=== PATIENT | male | born 1960 | race Caucasian/White ===

== ENCOUNTER 2020-10-30 09:19 | Outpatient (CLI) | payer MEDICAID, SELFPAY ==
--- NOTE | 2020-10-30 09:32 | US_ITS ---
WS: [id number] SCROTAL ULTRASOUND EXAMINATION CLINICAL INFORMATION: URINARY HESITENCY COMPARISON: FINDINGS: TESTES Normal in size and echotexture. Hypoechoic well-circumscribed solid lesion superior pole left testicl e peripherally measuring 6 5.2 x 3.6 x 3.6 mm. This is nonspecific but differential considerations in clude granuloma, chronic focal infarct, or neoplasm. Recommend urology consultation. Right testes size: 4.5 cm x 3.2 cm x 2.8 cm. Left testes size: 4.3 cm x 3.0 cm x 2.7 cm. EPIDIDYMIDES Left epididymal cyst 3.4 x 3.0 x 3.9 mm Right epididymis size: 0.6 cm x 1.0 cm x 0.8 cm. Left epididymitis size: 0.5 cm x 0.8 cm x 0.7 cm. HYDROCELE Small bilateral VARICOCELE None. OTHER FINDINGS None. US/US scrotum [id number] IMPRESSION: 1. Hypoechoic solid appearing lesion upper pole left testicle measuring 5.2 x 3.6 x 3.6 mm. This is nonspecific but differential considerations include granu ari, chronic focal infarct, or neoplasm. Neoplasm needs to be excluded. Recomm end urology consultation. 2. Small bilateral hydroceles. 3. Left epididymal cyst measuring 3.4 x 3.0 x 3.9 mm
== END 2020-10-30 09:20 | disposition home or self-care (01) ==
LOC: US 09:24
PROVIDERS: PCP Family Medicine; Visit Provider Family Medicine
DX: N40.0 Benign prostatic hyperplasia without lower urinary tract symptoms (principal); R39.11 Hesitancy of micturition; N50.3 Cyst of epididymis; N43.3 Hydrocele, unspecified
CPT/HCPCS: 76870

== ENCOUNTER → 2020-11-22 11:45 | Outpatient (BNVA) | payer MEDICAID, SELFPAY | PROVIDERS: PCP Family Medicine; Referring Provider Family Medicine; Visit Provider Urology | DX: R39.11 Hesitancy of micturition (principal); R97.20 Elevated prostate specific antigen [PSA]; N40.1 Benign prostatic hyperplasia with lower urinary tract symptoms; Q55.22 Retractile testis | CPT/HCPCS: 81003; 84153 ==

== ENCOUNTER → 2021-01-16 13:12 | Outpatient (BNVA) | payer MEDICAID, SELFPAY | PROVIDERS: PCP Family Medicine; Visit Provider Nurse Practitioner Family | DX: R97.20 Elevated prostate specific antigen [PSA] (principal) | CPT/HCPCS: 84153 ==

== ENCOUNTER → 2021-01-21 08:40 | Outpatient (BNVA) | payer MEDICAID, SELFPAY | PROVIDERS: PCP Family Medicine; Visit Provider Urology | DX: N40.1 Benign prostatic hyperplasia with lower urinary tract symptoms (principal); N30.80 Other cystitis without hematuria; R97.20 Elevated prostate specific antigen [PSA]; N41.1 Chronic prostatitis; R39.89 Other symptoms and signs involving the genitourinary system | CPT/HCPCS: 81003 ==

== ENCOUNTER → 2021-02-19 16:33 | Outpatient (BNVA) | payer MEDICAID, SELFPAY | PROVIDERS: PCP Family Medicine; Visit Provider Urology | DX: R97.20 Elevated prostate specific antigen [PSA] (principal) | CPT/HCPCS: 88305 ==

== ENCOUNTER 2021-03-20 07:12 | Outpatient (CLI) | payer MEDICAID, SELFPAY ==
--- NOTE | 2021-03-20 07:23 | NM_ITS ---
WS: [id number] NUCLEAR MEDICINE BONE SCAN Radiopharmaceutical: 27.1 Tc-99m MDP mCi IV Injection site: Left antecubital Postinjection imaging delay: 1 hr CLINICAL INFORMATION: MALIGNANT NEOPOLASM OF BONE COMPARISON: None. FINDINGS: Bone lesions: Single punctate focus of uptake in the right femoral head/neck junction. No other suspi cious findings. Soft tissue contours: Normal. Kidneys: Normal. Other findings: None. NM/NM bone scan whole body* [id number] IMPRESSION: 1. Single punctate focus of uptake in the right femoral head neck junction rogelio ears to correspond to the benign herniation pit on the radiograph and concurren t CT abdomen pelvis from today. Otherwise no evidence of metastatic disease. Th is could be followed-up in 3 months with bone scan and radiograph to confirm st ability. Herniation pit is stable since the hip radiograph 2014.
== END 2021-03-20 07:13 | disposition home or self-care (01) ==
PROVIDERS: PCP Family Medicine; Visit Provider Urology
DX: C41.9 Malignant neoplasm of bone and articular cartilage, unspecified (principal)
CPT/HCPCS: 78306; A9561

== ENCOUNTER 2021-03-20 07:26 | Outpatient (CLI) | payer MEDICAID, SELFPAY ==
[2021-03-20] MEDS: iohexol 300 mg/mL 100 mL Btl IV (07:38)
--- NOTE | 2021-03-20 09:00 | CT_ITS ---
WS: [id number] CT ABDOMEN PELVIS TECHNIQUE: Noncontrast CT of the abdomen and contrast-enhanced CT of the abdomen and pelvis with melony nal and sagittal reformatted images. CLINICAL INFORMATION: PROSTATE CANCER COMPARISON: None. DLP: 4030.[address] scans at [facility] use at least one of these dose optimization techniques: automated e xposure control; mA and/or kV adjustment per patient size (includes targeted exams where dose is matc hed to clinical indication); or iterative reconstruction. FINDINGS: Diffuse fatty infiltration of the liver. Hepatomegaly. A few tiny low-attenuation lesions in the live r likely hepatic cysts. Normal portal vein and splenic vein. Lung bases are well aerated. Normal GE j unction. Normal gallbladder. Normal spleen. Mild fatty atrophy of the pancreas. Adrenal glands are no rmal. Exophytic fat attenuation lesion left kidney measuring 2.9 x 2.7 cm consistent with angiomyolipoma. N ormal renal parenchymal enhancement. No hydronephrosis. Normal excretion on the delayed imaging. No filling defects. Left eccentric bladder wall thickening s uspicious for TCC. Enlarged heterogeneous enhancing prostate measuring 4.4 x 4.8 cM. Recommend correl ation PSA. Enlarged right periprostatic lymph node measuring 10 mm. Normal sigmoid colon. Diverticulosis. No evidence of acute diverticulitis. No evidence of high-grade small or large bowel obstruction. Tiny fat-containing umbilical hernia. Disc space narrowing worse L5 -S1. Mild disc bulging L3-L4 and L4-L5. CT/CT abdomen pelvis wo/w [id number] IMPRESSION: 1. Heterogeneously enhancing nodular enlarged prostate with indentation on the bladder. 2. Enlarged right periprostatic lymph node measuring 10 mm. 3. Left eccentric enhancing bladder wall thickening suspicious for neoplasm/TC C. Recommend further evaluation with cystoscopy. 4. 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 5. Diffuse fatty infiltration of the liver. Mild hepatomegaly. 6. A few low-attenuation lesions in the liver nonspecific but likely hepatic c ysts. 7. No inguinal lymphadenopathy.
--- NOTE | 2021-03-20 10:18 | XR_ITS ---
WS: [id number] HIP WITH PELVIS RIGHT TECHNIQUE: 3 views of the right hip with pelvis CLINICAL INFORMATION: BONE SCAN COMPARISON COMPARISON: 2015 FINDINGS: Synovial herniation pit right femoral neck is unchanged since 2015 with a thin margin of sclerosis. N o other suspicious lesions. Moderate degenerative narrowing right hip with hypertrophic changes about the acetabulum. XR/XR hip RT 2-3V wo/w pel* [id number] IMPRESSION: 1. Well-circumscribed synovial herniation pit in the right femoral neck is unc hanged since 2015 2. Although synovial herniation pits typically not active on bone scan, the fo amandeep area of uptake appears to correspond to the benign herniation pit. 3. No other suspicious findings. [place] classification: grade 2: small cysts in femoral head/acetabulum or moder ate joint space narrowing or moderate loss of head sphericity
== END 2021-03-20 07:27 | disposition home or self-care (01) ==
LOC: RAD 07:27
PROVIDERS: PCP Family Medicine; Visit Provider Urology
DX: C61 Malignant neoplasm of prostate (principal); N40.0 Benign prostatic hyperplasia without lower urinary tract symptoms; D17.71 Benign lipomatous neoplasm of kidney; K76.9 Liver disease, unspecified; K76.0 Fatty (change of) liver, not elsewhere classified
CPT/HCPCS: 73502; 74178

== ENCOUNTER 2021-04-29 10:36 | Outpatient (CLI) | payer MEDICAID, SELFPAY | END 2021-04-29 10:37 | disposition home or self-care (01) | PROVIDERS: PCP Family Medicine; Visit Provider Urology | DX: R97.20 Elevated prostate specific antigen [PSA] (principal) | CPT/HCPCS: 84153 ==

== ENCOUNTER → 2021-05-06 13:51 | Outpatient (BNVA) | payer MEDICAID, SELFPAY | PROVIDERS: PCP Family Medicine; Visit Provider Urology | DX: N41.1 Chronic prostatitis (principal); C61 Malignant neoplasm of prostate | CPT/HCPCS: 81003 ==

== ENCOUNTER 2021-05-21 14:30 | Outpatient (CLI) | payer MEDICAID, SELFPAY ==
--- NOTE | 2021-05-21 16:45 | ONC CON_ITS ---
Dr. Cole New Patient Note Patient: Per Carnes Unit #: [id number]: 1960 Dicatated By: Carlos Cole M.D.Date of Visit: May 21, 2021 Onc MED New Patient/Consult Referring Physician: Dr. Delon Mcrae M.D. History of Present Illness: Mr. Per Carnes, is a 60-year-old gentleman with longstanding history of intermittent retractile testicle,, about a year ago started having recurrent right groin pain and progressive LUTS, patient underwent ultrasound on November 22, 2020 which showed lesion on the left testicle, patient was started on finasteride and tamsulosin with significant improvement in symptoms, as per urology note from January 21, 2021, his PSA was 25.62 and prostate was asymmetrical (L>R) with left-sided firmness, patient was treated with ciprofloxacin JESSIE showed very irregular with left-sided nodularity so TRUS P/biopsy was recommended which was done on February 19, 2021 which showed [place] score 3+3 and 2 of the 12 cores on the left side of his prostate bone scan and CT scan of abdomen pelvis done on March 20, 2021 showed no evidence of metastatic disease., His repeat PSA on April 29, 2021 was 40.1 which was significantly high with very short doubling time although his [place] score was low e.g. 3+3. Patient denies smoking but chew tobacco, has history of heavy alcohol use, now sober. Denies any hematuria or dysuria, denies any fever chills, patient on ciprofloxacin. As per patient he has already seen radiation oncology but considering second opinion from [facility] in [place]. Past Medical History: Mr. Carnes's medical history is unremarkable. Past Surgical History: Mr. Carnes's surgical/procedural history consists of TRUSP/bx. Medications: Ciprofloxacin HCl 1 Tablet (of 500 mg) Oral b.i.d., Finasteride 1 Tablet (of 5 mg) Oral daily, Ibuprofen 1 Tablet (of 800 mg) Oral b.i.d. PRN, Tamsulosin HCl 2 Tablet (of 0.4 mg) Capsule Oral daily Allergies: Sulfa Antibiotics Social History: Mr. Carnes is legally . Mr. Carnes has never smoked. He drinks occasionally. He has indicated exposure to the following products: chewing tobacco. chews 1 can of tobacco weekly. Family History: Mr. Carnes's mother at age 89: esophageal cancer. Mr. Carnes's father at age 89: hypertension, and myocardial infarction. Review Of Symptoms: Review of Systems is not available for this patient. Vital Signs: Performed on May 21, 2021 15:38: 5, 0, 30.10 (HIGH), 2.15 sq.m, 70.5 in, 98 %, 70 /min, 18 /min, 142/92 mm(hg) (HIGH), 98.3 F (LOW), and 212.8 lbs (HIGH). Performance Status: 0 - Fully active, able to carry on all predisease activities without restrictions. (ECOG) Physical Examination: ENMT - . No mouth sores, no thrush, no jaundice, Respiratory - Lungs are clear to auscultation, Cardiovascular - Regular rate and rhythm of heart, Abdomen - Soft, bowel sounds present, Extremities - No visible edema. Lab/Imaging: Most recent lab results are not available for this patient. Impression: Prostatic adenocarcinoma per TUR SP/biopsy done on February 19, 2021 showed 2 cores positive for 3+3 [place] score with a volume of 45 to 55% and PSA checked on January 21, 2021 was 25.62 and on April 29, [address] scan of abdomen pelvis done on March 20, 2021 shows a heterogeneously enhancing nodular enlarged prostate with indentation on the bladder. Enlarged right periprostatic lymph node measuring 10 mm. Left eccentric enhancing bladder wall thickening suspicious for neoplasm/TCC no inguinal lymphadenopathy. A very few low-attenuation lesions in the liver, nonspecific but likely hepatic cysts. Bone scan done on March 20, 2021 showed no evidence of bone mets. Prostatitis, on ciprofloxacin Plan: Discussed with patient regarding his disease status and treatment options, clinically, patient has high risk prostate cancer being PSA more than 20, on April 29, 2021 his PSA was 40.1 but somehow [place] score is low e.g. 3+3 and 2 core biopsies with a volume of 45 to 55%, that would not explain PSA being that high, there are 2 possibilities either his prostate gland is harboring high-grade prostate cancer other possibility could be due to prostatitis. Case was discussed with Dr. Mcrae, urology, to consider repeating prostate biopsy but under general anesthesia as patient could not tolerate prostate biopsies done earlier due to significant pain.Unless repeat PSA shows significant improvement after treatment for prostatitis Patient is also interested in second opinion from [facility] prior to starting treatment, in that case we will refer him to urology oncology clinic at [place] for evaluation for clinical trial and for second opinion. Patient will return to clinic after his visit to [facility] in [place]. Signed By: Carlos Cole M.D. <<Signature on File>>
== END 2021-05-21 14:31 | disposition home or self-care (01) ==
LOC: ONCMED 14:37
PROVIDERS: PCP Family Medicine; Visit Provider Internal Medicine Hematology & Oncology
DX: C61 Malignant neoplasm of prostate (principal); Z79.899 Other long term (current) drug therapy
CPT/HCPCS: 99205

== ENCOUNTER → 2021-05-22 10:28 | Outpatient (BNVA) | payer MEDICAID, SELFPAY | PROVIDERS: PCP Family Medicine; Visit Provider Urology | DX: R97.20 Elevated prostate specific antigen [PSA] (principal); C61 Malignant neoplasm of prostate | CPT/HCPCS: 84153 ==

== ENCOUNTER → 2021-05-26 08:06 | Outpatient (BNVA) | payer MEDICAID, SELFPAY | PROVIDERS: PCP Family Medicine; Visit Provider Urology | DX: C61 Malignant neoplasm of prostate (principal) | CPT/HCPCS: 87635 ==

== ENCOUNTER 2021-05-28 05:59 | Day surgery (SDC) | payer MEDICAID, SELFPAY ==
[2021-05-27 12:34] VITALS: BMI 30.1
[2021-05-28 06:14] VITALS: BP 142/92; PULSE 58; RESP 18; TEMP 36.6; O2SAT 98
[2021-05-28] MEDS: sodium chloride 0.9% 1,000 ML 30 ML IV (06:41)
--- NOTE | 2021-05-28 06:49 | ANES.PREANE2 ---
Pre-Anesthetic Assessment Height/Weight: Height 1.79 m Weight 96.615 kg Temp Pulse Resp BP Pulse Ox 97.9 F 58 L 18 142/92 98 05/28/21 06:14 05/28/21 06:14 05/28/21 06:14 05/28/21 06:14 05/28/21 06:14 Preop Diagnosis: Prostate cancer needs restaging biopsies Operation Date: 05/28/21 07:00 Proposed Procedures p Transrectal Ultrasound Prostate W/Biospy [id number](Not Applicable) - Delon Mcrae MD Was Beta Rajesh taken within 24 hours: N/A Was Clonidine taken within 24 hours: N/A Last intake: Intake Last Liquid Date 05/27/21 Last Liquid Time 23:00 Last Solid Date 05/27/21 Last Solid Time 18:00 Social No alcohol and No tobacco Airway Submandibular: within normal limits Cervical ROM: within normal limits Mallampati: Class II Dentition: chipped Prostate CA Metabolic Morbid Obesity Anesthetic Plan ASA status: 2 Anesthesia: Choice Risk of > 500 ml blood loss (7ml/kg in children): No Medications/Allergies Home Medications Medication Instructions Recorded Confirmed Last Taken Type finasteride 5 mg tablet 5 mg PO DAILY 11/15/20 05/28/21 05/27/21 History tamsulosin 0.4 mg capsule 0.8 mg PO DAILY #60 cap 11/22/20 05/28/21 05/27/21 Rx ibuprofen 200 mg tablet 800 mg PO Q6H PRN tab 01/21/21 05/27/21 05/23/21 History ciprofloxacin HCl 500 mg tablet 500 mg PO BID #60 tab 03/07/21 05/28/21 05/27/21 Rx Allergies Allergy/AdvReac Type Severity Reaction Status Date / Time Sulfa (Sulfonamide Allergy UNKNOWN Verified 05/28/21 06:22 Antibiotics) Current Medications Generic Name Dose Route Start Last Admin Trade Name Freq PRN Reason Stop Dose Admin Sodium Chloride 1,000 mls @ 30 mls/hr 05/28/21 06:15 05/28/21 06:41 Sodium Chloride 0.9% IV 05/29/21 06:14 30 mls/hr .Q24H MEMO Administration PFSH Anesthesia Medical History Abnormal prostate exam BPH loc w urin obs/LUTS Elevated PSA Retractile testis Family History Mother , AT AGE 89 THROAT CANCER Cancer Father , AT AGE 89 HEART ATTACK CAD (coronary artery disease) Social History Alcohol intake: current Alcohol intake frequency: holidays/special occasions only Marital status: Current occupational status: unemployed and disabled History of recent travel: No Data Anesthesia Cardiac Studies: No Data to Display
--- NOTE | 2021-05-28 07:15 | W.PM.OPSUD ---
Surgery/Procedure H&P Update DATE OF PROCEDURE: May 28, 2021 DATE H&P PERFORMED: 05/06/21 CHANGES TO PREVIOUS DOCUMENTATION: Since his office visit the decision was made to proceed with rebiopsy given his persistently elevated PSA on antibiotics (the hope was that at least a significant portion of his PSA elevation was related to infection) and a [place] score on the few biopsies were performed that did not fit the clinical picture based on his high PSA. We reviewed these issues over the phone and decided to proceed with TRUSP/biopsy under anesthesia given the severity of his discomfort last time utilizing local anesthesia. No other significant historical changes. Denies chest pain shortness of breath mental status changes. Still has some unexplained right lower quadrant pain that sounds to be more musculoskeletal. Physical exam is unchanged. Cardiovascular regular rate and rhythm, respiratory: Clear to auscultation, abdomen: Soft nontender no masses, alert and oriented no acute distress, no focal neurologic defects, no rashes or lesions, no jaundice. Impression: Prostate cancer with clinical dilemma. Need more sampling. Treatment options for high risk prostate cancer are different than low risk prostate cancer and for that reason the biopsy is indicated to gather more data. Plan: Transrectal ultrasound the prostate with biopsy under anesthesia. Informed consent obtained after detailed discussion with the patient and his . PREOP DIAGNOSIS: Prostate cancer needs restaging biopsies PRIMARY INDICATION FOR PROCEDURE: Prostate cancer. Needs resampling to evaluate for high risk disease PLANNED PROCEDURE: Operation Date: 05/28/21 07:00 Proposed Procedures p Transrectal Ultrasound Prostate W/Biospy [id number]/C61(Not Applicable) - Delon Mcrae MD
--- NOTE | 2021-05-28 07:19 | PM.OP ---
Operative Report Date of procedure: May 28, 2021 Pre-op diagnosis: Preop Diagnosis Prostate cancer needs restaging biopsies Post-op diagnosis: Same Procedure done: 1. Transrectal ultrasound of the prostate with biopsy Implants: None Specimens removed/disposition: Prostate biopsy cores Pathology: Prostate biopsy cores Surgeon: Thor Vest Busheler: Jesus Estimated blood loss: Minimal Not applicable Complications: None Findings: Ultrasound findings: Volume: About 42 cc Calcifications: Some along the transition between the transitional and peripheral zones Hypoechoic lesions: Multiple areas in the areas of biopsy. Prostate sampling- TEMPLATE fashion. Total number of cores: 12 Brief History: Per is a very pleasant 60-year-old white male who was found to have an abnormal rectal exam elevated PSA he did have some symptoms suspicious for prostatitis and was initially treated with antibiotics without resolution of his elevated PSA and he underwent a prostate biopsy that demonstrated 2 of 5 cores positive for [place] 3+3 (55% involvement). These were located on the LEFT apex and RIGHT lateral apex. Staging studies based on his high risk PSA included abdomen pelvis CT scan with and without contrast and bone scan. Both were negative for metastatic disease. Because of the dilemma related to his low risk of biopsy but high risk status with PSA it was decided to take more biopsies this time under anesthesia. He had severe discomfort during the first biopsy performed the usual way with local anesthesia and pretreated with pain medication and Valium. Anesthesia was required this visit based on those symptoms. Procedure: After routine preoperative evaluation examination and obtaining of informed consent he was taken to the operating suite on 05/28/2021 where general anesthesia was administered without difficulty after appropriate timeout was performed, SCDs confirmed to be functioning, preoperative antibiotics administered, beta-khadar protocol confirmed. Placed in left lateral decubitus position as per typical biopsy protocol. JESSIE was performed confirming previous findings. The ultrasound probe was inserted into the rectum and the prostate was examined both in sagittal and transverse views. Measurements were obtained. See findings above. Utilizing the biopsy guide and ultrasound track the prostate was sampled 12 times per template protocol. The probe was removed. Rectum was inspected there was more oozing than usual but it quickly stopped and was not deemed clinically significant. Pressure was held for several minutes on the perineum per routine. Rectal exam was performed with no pooling of blood noted after pressure held He tolerated the procedure well without complications. He was awakened in the operating room and returned to the recovery room in stable condition Related Problem List Diagnoses (1) Prostate cancer: (2) Elevated PSA:
[2021-05-28] MEDS: cefTRIAXone 1,000 MG in sodium chloride 0.9% (plus) 50 ML 100 MG IV (07:22)
[2021-05-28 07:51] VITALS: BP 145/112; PULSE 69; RESP 18; TEMP 36.2; O2SAT 97
[2021-05-28 07:56] VITALS: BP 144/102; PULSE 68; RESP 18; O2SAT 99
[2021-05-28 08:01] VITALS: BP 148/100; PULSE 60; RESP 18; TEMP 36.2; O2SAT 99
[2021-05-28 08:07] VITALS: BP 138/105; PULSE 63; RESP 15; O2SAT 96
--- NOTE | 2021-05-28 08:16 | ANE.PACU2 ---
Inpatient post-anesthesia follow up: Airway intact: Yes Vital signs: Temperature 97.2 F Pulse Rate 63 Respiratory Rate 15 Blood Pressure 138/105 Pulse Oximetry 96 Oxygen Delivery Me thod Room Air Oxygen Flow Rate Fraction of Inspir ed Oxygen Hydration adequate: Yes Nausea and vomiting: No Pain level: 1 Mental status: Baseline
[2021-05-28 09:04] VITALS: RESP 18; O2SAT 97
[2021-05-28] MEDS: oxyCODONE-APAP 5-325 mg Tablet 1 TAB PO (09:04)
== END 2021-05-28 09:54 | disposition home or self-care (01) ==
PROVIDERS: PCP Family Medicine; Visit Provider Urology
PROC: 0VB03ZX Excision of Prostate, Percutaneous Approach, Diagnostic (ICD-10-PCS; CPT 76942; principal; 2021-05-28 07:00)
DX: C61 Malignant neoplasm of prostate (principal); R97.20 Elevated prostate specific antigen [PSA]; E66.01 Morbid (severe) obesity due to excess calories; Z68.30 Body mass index [BMI] 30.0-30.9, adult; N40.1 Benign prostatic hyperplasia with lower urinary tract symptoms; N13.8 Other obstructive and reflux uropathy
CPT/HCPCS: 55700; 76872; 88305; 88342; J0696; J2250; J2704; J3010; J7030

== ENCOUNTER 2021-11-26 11:56 | Outpatient (CLI) | payer MEDICAID, SELFPAY ==
[2021-11-26 13:33] LABS: Prostate Specific Antigen 0.324 ng/mL (0-4); Testosterone Total 25.9 ng/dL (193-740)
== END 2021-11-26 11:57 | disposition home or self-care (01) ==
LOC: LAB 11:57
PROVIDERS: PCP Family Medicine; Visit Provider Radiology Radiation Oncology
DX: C61 Malignant neoplasm of prostate (principal); R97.20 Elevated prostate specific antigen [PSA]
CPT/HCPCS: 36415; 84153; 84403

== ENCOUNTER 2022-03-12 10:12 | Outpatient (CLI) | payer MEDICAID, SELFPAY ==
[2022-03-12 11:35] LABS: Testosterone Total 16.4 ng/dL (193-740)
== END 2022-03-12 10:13 | disposition home or self-care (01) ==
PROVIDERS: PCP Family Medicine; Visit Provider Radiology Radiation Oncology
DX: C61 Malignant neoplasm of prostate (principal)
CPT/HCPCS: 36415; 84153; 84403

== ENCOUNTER 2022-06-16 11:44 | Outpatient (CLI) | payer MEDICAID, SELFPAY ==
[2022-06-16 12:36] LABS: Prostate Specific Antigen 0.101 ng/mL (0-4)
== END 2022-06-16 11:45 | disposition home or self-care (01) ==
LOC: LAB 11:47
PROVIDERS: PCP Family Medicine; Visit Provider Radiology Radiation Oncology
DX: C61 Malignant neoplasm of prostate (principal)
CPT/HCPCS: 36415; 84153

== ENCOUNTER 2022-09-01 12:07 | Outpatient (CLI) | payer MEDICAID, SELFPAY ==
[2022-09-01 13:04] LABS: Prostate Specific Antigen 0.071 ng/mL (0-4)
== END 2022-09-01 12:08 | disposition home or self-care (01) ==
LOC: LAB 12:11
PROVIDERS: PCP Family Medicine; Visit Provider Radiology Radiation Oncology
DX: C61 Malignant neoplasm of prostate (principal)
CPT/HCPCS: 36415; 84153

== ENCOUNTER 2022-12-01 17:59 | Emergency (ER) | payer MEDICAID, SELFPAY ==
[2022-12-01 18:21] VITALS: BP 151/82; PULSE 74; RESP 16; TEMP 37.1; O2SAT 97; BMI 31.5
[2022-12-01 18:52] LABS: Basophils # 0.2 10^3/uL (0.0-0.1); Eosinophils # 0.2 10^3/uL (0.0-0.8); Eosinophils % 1.5 %; Hematocrit 44.9 % (42.0-52.0); Hemoglobin 14.4 g/dL (11.7-16.6); Lymphocytes # 2.7 10^3/uL (0.8-4.8); Lymphocytes % 17.4 %; Mean Corpuscular HGB Conc 32.1 g/dL (30.0-36.0); Mean Corpuscular Volume 87.2 fl (80-94); Monocytes # 1.7 10^3/uL (0.2-0.9); Monocytes % 10.8 %; Neutrophils # 10.81 10^3/uL (1.8-7.7); Neutrophils % 68.9 %; Nucleated Red Blood Cells % 0 %; Platelet Count 307 10^3/cmm (130-400); Red Blood Count 5.15 10^6/uL (4.1-5.3); Red Cell Distribution Width 13.9 % (12.1-15.1); White Blood Count 15.7 10^3/uL (4.0-10.0)
[2022-12-01 19:19] LABS: Alanine Aminotransferase 17 U/L (0-41); Albumin Level 4.1 g/dL (3.5-5.2); Alkaline Phosphatase 99 U/L (40-130); Anion Gap 17.9 (5-19); Aspartate Amino Transferase 13 U/L (0-40); Blood Urea Nitrogen 16 mg/dL (8-23); Calcium 9.6 mg/dL (8.5-10.5); Carbon Dioxide 23 mmol/L (22-29); Chloride 99 mmol/L (98-107); Globulin 3.1 g/dL (1.3-4.6); Glomerular Filtration Rate 98.3 mL/min (90-130); Glucose 103 mg/dL (65-115); Lipase 22 U/L (13-60); Osmolality Calculated 283 mOsm/kg (285-295); Potassium 3.9 mmol/L (3.5-5.1); Sodium 136 mmol/L (136-145); Total Bilirubin 0.3 mg/dL (0.15-1.2); Total Protein 7.2 g/dL (6.6-8.7)
--- NOTE | 2022-12-01 20:05 | USR_ITS ---
PROCEDURE INFORMATION: Exam: US Retroperitoneal; Complete; Kidneys and Bladder Exam date and time: 12/01/2022 8:44 PM Age: 62 years old Clinical indication: Abdominal pain; Other: Right inguinal pain. History of prostate CA with mets to the right femur; Prior surgery; Surgery date: 6+ months; Surgery type: Multiple prostate biopsies at [facility]; Additional info: Bladder pain, UTI symptoms, HX prostate CA w/ mets to bone TECHNIQUE: Imaging protocol: Real-time ultrasound of the retroperitoneum with image documentation. Complete exam focused on the kidneys and bladder. COMPARISON: CT abdomen pelvis wo/w [id number] 03/20/2021 7:34 AM FINDINGS: Right kidney: Normal. No stones. No hydronephrosis. Left kidney: Normal. No stones. No hydronephrosis. Urinary bladder: Prevoid bladder volume 205 mL. Postvoid bladder volume 167 mm. Prostate: Prostate gland volume 17.8 ml. US/US renal BI with PV bladder IMPRESSION: Negative for hydronephrosis or renal calculus.
--- NOTE | 2022-12-01 20:09 | ED_ITS ---
HPI - Back Pain/Injury General: Chief Complaint: Back Pain/Injury Stated Complaint: rt abd pain Time Seen by Provider: 12/01/22 19:48 History of Present Illness: Patient is a 62-year-old male who comes to the ED with bladder pain. Patient has a history of prostate cancer with metastasis to right femur. Patient had radiation therapy over the past year and is following up with his doctor in [place] to checkup on his cancer on December 09. States that over the weekend he caught a flu bug from his girlfriend. He had a couple days of feeling terrible laying in bed and had some nausea and vomiting. Those symptoms have resolved but over the last 2 days he has been having some pain in his bladder that he describes as a burning type pain on the right side of his bladder. He endorses some burning with urination but then after he urinates pain in bladder improves. Denies any fevers, nausea, vomiting, over the past 2 days. Denies any hematuria. Patient contacted his PCP and they told him to come here to the ED for further evaluation and possible ultrasound. Associated symptoms: Reports dysuria; Deny abdominal pain, chills, fatigue, fever(s), hematuria, nausea or vomiting Review of Systems Const: Denies: fever(s), chills or fatigue Eyes: Denies: change in vision or eye discomfort ENMT: Denies: throat pain, odynophagia, nasal discharge or nasal congestion Card: Denies: chest pain, palpitations, edema, swelling of feet/ankles, dyspnea on exertion or orthopnea Resp: Denies: dyspnea, productive cough or non-productive cough GI: Denies: abdominal pain, nausea, vomiting, diarrhea, constipation or hematochezia : Reports: dysuria and other (Bladder pain); Denies: flank pain, difficulty urinating or hematuria Musc: Denies: neck pain, back pain or extremity swelling Skin/Breast: Denies: rash or new lesions Neuro: Denies: headache(s), numbness in extremities or weakness in extremities PFS ED PFSH: Medical History Abnormal prostate exam BPH loc w urin obs/LUTS Elevated PSA Retractile testis Family History Mother , AT AGE 89 THROAT CANCER Cancer Father , AT AGE 89 HEART ATTACK CAD (coronary artery disease) Social History Alcohol intake: current Alcohol intake frequency: holidays/special occasions only Substance/Drug Use: never Marital status: Current occupational status: unemployed and disabled Physical Exam Const: COMMON NORMALS: no acute distress, patient oriented x3, healthy appearing and alert HENMT: COMMON NORMALS: normocephalic HEAD & SCALP: normocephalic MOUTH: Normal oral and palatal mucosa present THROAT: posterior oropharynx normal and uvula midline Neck/C-Spine: COMMON NORMALS: supple GENERAL: Yes normal visual inspection Resp: COMMON NORMALS: normal respiratory effort, No retractions, No use of accessory muscles and clear to auscultation bilaterally AUSCULTATION: clear to auscultation bilaterally Cardio: COMMON NORMALS: regular rate, regular rhythm, S1 normal heart sound present, S2 normal heart sound present, No gallops present (Cardio), No clicks present (Cardio), No murmurs present (Cardio) and Peripheral pulses 2+ throughout RATE: regular rate RHYTHM: regular rhythm HEART SOUNDS: S1 normal heart sound present and S2 normal heart sound present PERIPHERAL PULSES: Peripheral pulses 2+ throughout GI: COMMON NORMALS: Normal to inspection, nondistended, normoactive bowel sounds present, Soft to palpation, non-tender and no masses PALPATION: Yes Soft to palpation and Yes Bladder palpation abnormal : COMMON NORMALS: Yes no CVA tenderness BLADDER/KIDNEY EXAM: Yes no CVA tenderness and Yes Bladder palpation abnormal Bladder abnormal details: tender Back/Pelvis: COMMON NORMALS: no CVA tenderness Extremity: COMMON NORMALS: normal to inspection Neuro: COMMON NORMALS: patient oriented x3 SENSORIUM/ORIENTATION: Yes alert GAIT: Yes Normal gait present Skin: GENERAL SKIN EXAM: dry skin Course Vital Signs: Vital signs: Vital Signs Temperature 98.7 F 12/01/22 18:21 Pulse Rate 64 12/01/22 20:44 Respiratory Rate 14 12/01/22 22:06 Blood Pressure 144/86 12/01/22 22:06 Pulse Oximetry 100 12/01/22 22:06 Oxygen Delivery Me thod Room Air 12/01/22 18:21 MDM - Back Pain/Injury Medical Decision Making Patient is a 62-year-old male who comes to the ED with bladder pain. Patient has a history of prostate cancer with metastasis to right femur. Patient had radiation therapy over the past year and is following up with his doctor in [place] to checkup on his cancer on December 09. States that over the weekend he caught a flu bug from his girlfriend. He had a couple days of feeling terrible laying in bed and had some nausea and vomiting. Those symptoms have resolved but over the last 2 days he has been having some pain in his bladder that he describes as a burning type pain on the right side of his bladder. He endorses some burning with urination but then after he urinates pain in bladder improves. Denies any fevers, nausea, vomiting, over the past 2 days. Denies any hematuria. Patient contacted his PCP and they told him to come here to the ED for further evaluation and possible ultrasound. Vitals are stable. Patient appears nontoxic and in no acute distress or pain. He has some bladder tenderness but no CVA tenderness. Rest of exam is benign. White blood cell count of 15.7 and the rest of CBC and CMP are unremarkable. UA shows signs of UTI. Renal and bladder ultrasound showed no acute findings. Patient was diagnosed with a UTI and was stable for discharge home. Sent home with a prescription for an antibiotic and told to follow-up with PCP within the next couple days for reevaluation. Return to ED precautions given. Patient understood and agreed with plan. Labs I reviewed the patient's lab results. 12/01/22 18:38 12/01/22 18:38 Radiology Impressions Renal Ultrasound 12/01/22 20:05 IMPRESSION: Negative for hydronephrosis or renal calculus. Laboratory Results WBC 15.7 10^3/uL (4.0-10.0) H 12/01/22 18:38 RBC 5.15 10^6/uL (4.1-5.3) 12/01/22 18:38 Hgb 14.4 g/dL (11.7-16.6) 12/01/22 18:38 Hct 44.9 % (42.0-52.0) 12/01/22 18:38 MCV 87.2 fl (80-94) 12/01/22 18:38 MCH 28.0 pg (28.0-34.0) 12/01/22 18:38 MCHC 32.1 g/dL (30.0-36.0) 12/01/22 18:38 RDW 13.9 % (12.1-15.1) 12/01/22 18:38 Plt Count 307 10^3/cmm (130-400) 12/01/22 18:38 MPV 10.0 fL (7.4-10.4) 12/01/22 18:38 Neut % (Auto) 68.9 % 12/01/22 18:38 Lymph % (Auto) 17.4 % 12/01/22 18:38 [place] % (Auto) 10.8 % 12/01/22 18:38 Eos % (Auto) 1.5 % 12/01/22 18:38 Baso % (Auto) 1.0 % 12/01/22 18:38 Neut # (Auto) 10.81 10^3/uL (1.8-7.7) H 12/01/22 18:38 Lymph # (Auto) 2.7 10^3/uL (0.8-4.8) 12/01/22 18:38 [place] # (Auto) 1.7 10^3/uL (0.2-0.9) H 12/01/22 18:38 Eos # (Auto) 0.2 10^3/uL (0.0-0.8) 12/01/22 18:38 Baso # (Auto) 0.2 10^3/uL (0.0-0.1) H 12/01/22 18:38 Nucleated RBC % (auto) 0 % 12/01/22 18:38 Nucleated RBCs # 0.0 /100WBC 12/01/22 18:38 Sodium 136 mmol/L (136-145) 12/01/22 18:38 Potassium 3.9 mmol/L (3.5-5.1) 12/01/22 18:38 Chloride 99 mmol/L (98-107) 12/01/22 18:38 Carbon Dioxide 23 mmol/L (22-29) 12/01/22 18:38 Anion Gap 17.9 (5-19) 12/01/22 18:38 BUN 16 mg/dL (8-23) 12/01/22 18:38 Creatinine 0.8 mg/dL (0.7-1.2) 12/01/22 18:38 GFR Calculation 98.3 mL/min (90-130) 12/01/22 18:38 Glucose 103 mg/dL (65-115) 12/01/22 18:38 Calculated Osmolality 283 mOsm/kg (285-295) L 12/01/22 18:38 Calcium 9.6 mg/dL (8.5-10.5) 12/01/22 18:38 Total Bilirubin 0.3 mg/dL (0.15-1.2) 12/01/22 18:38 AST 13 U/L (0-40) 12/01/22 18:38 ALT 17 U/L (0-41) 12/01/22 18:38 Alkaline Phosphatase 99 U/L (40-130) 12/01/22 18:38 Total Protein 7.2 g/dL (6.6-8.7) 12/01/22 18:38 Albumin 4.1 g/dL (3.5-5.2) 12/01/22 18:38 Globulin 3.1 g/dL (1.3-4.6) 12/01/22 18:38 Lipase 22 U/L (13-60) 12/01/22 18:38 Urine Color Light yellow (Yellow) 12/01/22 20:09 Urine Appearance Cloudy (CLEAR) A 12/01/22 20:09 Urine pH 6 (5-7) 12/01/22 20:09 Ur Specific [place] 1.010 (1.005-1.030) 12/01/22 20:09 Urine Protein Neg (Negative) 12/01/22 20:09 Urine Glucose (UA) Norm (Normal) 12/01/22 20:09 Urine Ketones Negative (Negative) 12/01/22 20:09 Urine Blood 2+ (Negative) H 12/01/22 20:09 Urine Nitrate Negative (Negative) 12/01/22 20:09 Urine Bilirubin Neg (Negative) 12/01/22 20:09 Urine Urobilinogen Neg mg/dL (Negative) 12/01/22 20:09 Ur Leukocyte Esterase 2+ (Negative) H 12/01/22 20:09 Urine RBC 5-10 /hpf (0-2) H 12/01/22 20:09 Urine WBC 25-40 /hpf (0-5) H 12/01/22 20:09 Ur Squamous Epith Cells None /hpf (0-5) 12/01/22 20:09 Amorphous Sediment Not Reportable 12/01/22 20:09 Urine Bacteria 2+ /hpf (NONE) H 12/01/22 20:09 Discharge Plan Discharge Patient Disposition: Home Clinical Impression: UTI (urinary tract infection) Condition: Stable Prescriptions: New cephalexin 500 mg capsule 500 mg PO Q6H 7 Days Qty: 28 0RF No Action finasteride 5 mg tablet 5 mg PO DAILY ibuprofen 200 mg tablet 800 mg PO Q6H PRN (Reason: Pain) Hold Instructions: Resume on 06/04/21. ciprofloxacin HCl 500 mg tablet 500 mg PO BID Qty: 60 6RF tamsulosin 0.4 mg capsule See Rx Instructions .ROUTE .COMPLEX Qty: 180 3RF Dose Instruction: TAKE TWO (2) CAPSULES BY MOUTH ONCE DAILY Rx Instructions: TAKE TWO (2) CAPSULES BY MOUTH ONCE DAILY Percocet 5-325 mg tablet 1 tab PO Q6H Qty: 12 0RF Discharge Orders: Discharge ED (Routine); Ordered 12/01/22 Ordered By: Con Verdin Referrals: Chintan Milian MD [Primary Care Provider] - Discharge Diet: Regular Discharge Activity: Increase activity as tolerated Patient Instructions: Urinary Tract Infection in Men (ED) Activity Restrictions/Additional Instructions: Follow-up with medical provider as directed. Take medications as prescribed. Return to the ER or your medical provider if condition worsens. Please read and understand discharge instructions. Thank you for choosing [facility] for your healthcare needs today. Please realize this is an emergency room and that we are providing you with a medical screening exam and this may not be complete and all inclusive of all the testing and or work up that you may need to determine your ailment or severity of your illness. It is very important that you follow up as instructed or that you return to the Emergency Department should you have concerns or if your condition changes or worsens in any way. Coding Level of Care Code ED Structural Draftsman for Caterina Harmon
[2022-12-01 20:28] LABS: Add Urine Culture? Yes; Add Urine Microscopic? YES; Bacteria Urine 2+ /hpf; Bilirubin Urine Neg (Negative); Blood Urine 2+ (Negative); Glucose Urine UA Norm (Normal); Ketones Urine Negative (Negative); Leukocyte Esterase Urine 2+ (Negative); Nitrate Urine Negative (Negative); Protein Urine Neg (Negative); Urine Appearance Cloudy (CLEAR); Urine Color Light yellow (Yellow); Urobilinogen Urine Neg (Negative); WBC Urine 25-40 /hpf (0-5); pH Urine 6 (5-7)
[2022-12-01 20:44] VITALS: BP 128/98; PULSE 64; RESP 16; O2SAT 98
[2022-12-01 22:06] VITALS: BP 144/86; RESP 14; O2SAT 100
== END 2022-12-01 22:11 | disposition home or self-care (01) ==
PROVIDERS: Emergency Medicine; Emergency Provider Physician Assistant; PCP Family Medicine
DX: N39.0 Urinary tract infection, site not specified (principal)
CPT/HCPCS: 36415; 76770; 76857; 80053; 81001; 83690; 85025; 87077; 87086; 87186; 99284

== ENCOUNTER 2023-03-10 10:39 | Outpatient (CLI) | payer MEDICAID, SELFPAY ==
[2023-03-14 02:59] LABS: Testosterone, Free 2.3 pg/mL (46.0-224.0)
== END 2023-03-10 10:40 | disposition home or self-care (01) ==
PROVIDERS: PCP Nurse Practitioner; Visit Provider Nurse Practitioner Family
DX: C61 Malignant neoplasm of prostate (principal)
CPT/HCPCS: 36415; 84153; 84402

== ENCOUNTER 2023-06-17 11:17 | Outpatient (CLI) | payer MEDICAID, SELFPAY ==
[2023-06-17 12:58] LABS: Prostate Specific Antigen 0.031 ng/mL (0-4); Testosterone Total 22.3 ng/dL (193-740)
== END 2023-06-17 11:18 | disposition home or self-care (01) ==
LOC: LAB 11:22
PROVIDERS: PCP Nurse Practitioner; Visit Provider Nurse Practitioner Family
DX: C61 Malignant neoplasm of prostate (principal)
CPT/HCPCS: 36415; 84153; 84403

== ENCOUNTER 2023-09-28 11:59 | Outpatient (CLI) | payer MEDICAID, SELFPAY ==
[2023-09-28 12:58] LABS: Prostate Specific Antigen 0.051 ng/mL (0-4); Testosterone Total 23.5 ng/dL (193-740)
== END 2023-09-28 12:00 | disposition home or self-care (01) ==
LOC: LAB 12:01
PROVIDERS: PCP Nurse Practitioner; Visit Provider Nurse Practitioner Family
DX: C61 Malignant neoplasm of prostate (principal)
CPT/HCPCS: 36415; 84153; 84403

== ENCOUNTER 2023-12-29 13:06 | Outpatient (CLI) | payer MEDICAID, SELFPAY ==
[2023-12-29 14:30] LABS: Testosterone Total 29.2 ng/dL (193-740)
[2023-12-29 14:31] LABS: Prostate Specific Antigen 0.071 ng/mL (0-4)
== END 2023-12-29 13:07 | disposition home or self-care (01) ==
LOC: LAB 13:08
PROVIDERS: Absent Provider Nurse Practitioner Family; PCP Nurse Practitioner; Visit Provider Nurse Practitioner Family
DX: C61 Malignant neoplasm of prostate (principal)
CPT/HCPCS: 36415; 84153; 84403

== ENCOUNTER 2024-03-28 11:26 | Outpatient (CLI) | payer MEDICAID, SELFPAY ==
[2024-03-28 12:57] LABS: Testosterone Total 41.1 ng/dL (193-740)
== END 2024-03-28 11:27 | disposition home or self-care (01) ==
LOC: LAB 11:28
PROVIDERS: PCP Nurse Practitioner; Visit Provider Nurse Practitioner Family
DX: C61 Malignant neoplasm of prostate (principal)
CPT/HCPCS: 84153; 84403

== ENCOUNTER 2024-06-28 14:36 | Outpatient (CLI) | payer MEDICAID, SELFPAY ==
[2024-06-28 15:47] LABS: Prostate Specific Antigen 0.831 ng/mL (0-4); Testosterone Total 60.7 ng/dL (193-740)
== END 2024-06-28 14:37 | disposition home or self-care (01) ==
PROVIDERS: PCP Nurse Practitioner; Visit Provider Nurse Practitioner Family
DX: C61 Malignant neoplasm of prostate (principal)
CPT/HCPCS: 36415; 84153; 84403

== ENCOUNTER 2024-10-01 11:43 | Outpatient (CLI) | payer MEDICAID, SELFPAY ==
[2024-10-01 12:40] LABS: Testosterone Total 177.8 ng/dL (193-740)
== END 2024-10-01 11:44 | disposition home or self-care (01) ==
LOC: LAB 11:44
PROVIDERS: PCP Nurse Practitioner; Visit Provider Nurse Practitioner Family
DX: C61 Malignant neoplasm of prostate (principal)
CPT/HCPCS: 36415; 84153; 84403

== ENCOUNTER 2024-10-13 14:15 | Outpatient (CLI) | payer MEDICAID, SELFPAY | END 2024-10-13 14:16 | disposition home or self-care (01) | LOC: LAB 14:17 | PROVIDERS: PCP Nurse Practitioner; Visit Provider Nurse Practitioner Family | DX: C61 Malignant neoplasm of prostate (principal) | CPT/HCPCS: 36415; 84153 ==

== ENCOUNTER 2025-03-12 13:46 | Outpatient (CLI) | payer MEDICAID, SELFPAY ==
[2025-03-12 15:16] LABS: Prostate Specific Antigen 4.880 ng/mL (0-4)
== END 2025-03-12 13:47 | disposition home or self-care (01) ==
LOC: LAB 13:50
PROVIDERS: PCP Nurse Practitioner; Visit Provider Radiology Radiation Oncology
DX: C61 Malignant neoplasm of prostate (principal); Z08 Encounter for follow-up examination after completed treatment for malignant neoplasm; Z85.46 Personal history of malignant neoplasm of prostate
CPT/HCPCS: 36415; 84153; 84403